=== PATIENT | female | born 1995 | race Caucasian/White ===

== ENCOUNTER 2019-01-04 09:49 | Emergency (ER) | payer OTHER ==
[~2019-01-04] VITALS: Ht 157.5 cm; Wt 102.5 kg
[2019-01-04 09:55] VITALS: Ht 157.5 cm; Wt 102.5 kg
[2019-01-04 12:12] VITALS: BP 137/95
== END 2019-01-04 12:12 | disposition home or self-care (01) ==
LOC: ED 09:49
DX: H10.32 Unspecified acute conjunctivitis, left eye (principal); I10 Essential (primary) hypertension

== ENCOUNTER 2019-10-22 11:11 | Inpatient (IN) | payer OTHER ==
[~2019-10-22] VITALS: Ht 165.1 cm; Wt 101.6 kg
[2019-10-22 11:18] VITALS: Ht 165.1 cm; Wt 101.6 kg
[2019-10-22 11:54] LABS: UA SPECIFIC GRAVITY <=1.005 (1.005-1.035); microscopic required? YES; urine erythrocyte 3+ (NEGATIVE)
[2019-10-22 12:10] LABS: BASOPHIL % 0.3 % (0-2); PLATELET COUNT 312 x10^3mcL (130-400); RED CELL DISTRIBUTION WIDTH 13.1 % (11.5-14.5)
[2019-10-22 12:54] LABS: CARBON DIOXIDE 28.7 mmol/L (21-32); CHLORIDE SERUM 102 mmol/L (98-107); CREATININE SERUM 0.8 mg/dL (0.6-1.0); GFR1 > 60 mL/min; GLUCOSE SERUM 100 mg/dL (74-106); POTASSIUM SERUM 3.4 mmol/L (3.5-5.1); SODIUM SERUM 140 mmol/L (136-145)
[2019-10-22 12:59] LABS: ALBUMIN 3.6 g/dL (3.4-5.0); ALKALINE PHOSPHATASE 91 U/L (46-116); ALT/SGPT 37 U/L (14-59); AST/SGOT 21 U/L (15-37); BILIRUBIN TOTAL 0.8 mg/dL (0.20-1.00); TOTAL PROTEIN, SERUM 7.6 g/dL (6.4-8.2)
[2019-10-22] MEDS ORDERED: HYDROCHLOROTHIA25 MG PO (13:06)
[2019-10-22 22:28] VITALS: BP 117/55
[2019-10-23 05:36] VITALS: BP 108/63
[2019-10-23 07:11] LABS: CALCIUM 8.5 mg/dL (8.5-10.1); CARBON DIOXIDE 26.4 mmol/L (21-32); CHLORIDE SERUM 103 mmol/L (98-107); CREATININE SERUM 0.7 mg/dL (0.6-1.0); GFR1 > 60 mL/min; GLUCOSE SERUM 114 mg/dL (74-106); MAGNESIUM 1.9 mg/dL (1.8-2.4); POTASSIUM SERUM 3.5 mmol/L (3.5-5.1); SODIUM SERUM 139 mmol/L (136-145)
[2019-10-23 07:16] LABS: BASOPHIL % 0.4 % (0-2); PLATELET COUNT 288 x10^3mcL (130-400); RED CELL DISTRIBUTION WIDTH 13.1 % (11.5-14.5)
[2019-10-23 08:36] VITALS: BP 119/63
[2019-10-23 12:09] VITALS: BP 123/75
[2019-10-23 12:19] VITALS: BP 123/75
== END 2019-10-23 14:32 | disposition home or self-care (01) | DRG 564 ==
LOC: ED 11:11 → DU 12:52
PROVIDERS: Emergency Medicine; Obstetrics & Gynecology; ADMIT Family Medicine; ATTEND Family Medicine
PROC: 10J24ZZ Inspection of Products of Conception, Ectopic, Percutaneous Endoscopic Approach (ICD-10-PCS; principal; 2019-10-22 19:30)
DX: O02.1 Missed abortion (principal); E66.01 Morbid (severe) obesity due to excess calories; O00.90 Unspecified ectopic pregnancy without intrauterine pregnancy; I10 Essential (primary) hypertension; N80.9 Endometriosis, unspecified; Z68.37 Body mass index [BMI] 37.0-37.9, adult; Z71.3 Dietary counseling and surveillance
CPT/HCPCS: C1758; G0378; J1170; J3010; J3490; J7042